=== PATIENT | male | born 1955 | race Caucasian/White ===

== ENCOUNTER 2017-02-14 08:48 | Day surgery (SDC) | payer OTHER ==
[~2017-02-14] VITALS: Ht 182.9 cm; Wt 78.0 kg
--- NOTE | 2017-02-15 10:34 | OR ---
ADMIT: 02/14/2017 RM/LOC: [facility] MR#: [id number] [address] [id number] DEBRA HOLGUIN [address] [place] [address] Operative/Delivery Room Report SEX: M AGE: 61 : 1955 SURGERY DATE: 02/14/2017 SURGEON: Manish Ho MD PROCEDURE: Total colonoscopy with hot biopsy polypectomies. PREOPERATIVE DIAGNOSIS: Colon polyps. POSTOPERATIVE DIAGNOSES: 1. Colon polyps. 2. Left-sided diverticulosis. DESCRIPTION OF PROCEDURE: The patient was brought to the procedure room, placed in left lateral decubitus position. Informed consent had been obtained preoperatively. The risks and benefits including, but not limited to, perforation, sedation, and bleeding were discussed with the patient and agreed upon. All questions were answered, alternatives discussed, the patient agreed. TIVA was provided by the GREEN INSPECTOR with propofol. Anal inspection, digital examination revealed no abnormalities or obstructing masses. Prostate was normal in size, texture, and contour without nodularity. Olympus videoendoscope, model CF-H180AL, was inserted into the rectum and advanced to cecum without difficulty. The appendiceal orifice and ileocecal valve were identified. The valve could not be cannulated due to position. Scope was retroflexed in the cecum, and the ascending colon appeared normal, retrograde. The scope was slowly withdrawn through a normal ascending and transverse colon. In the descending colon, polyps were removed using a hot biopsy forceps, these were cauterized and retrieved. In the sigmoid, there were scattered diverticula and occasional small polyp that appeared adenomatous and removed in a similar fashion. Rectum was normal. Scope was retroflexed. The anal verge appeared normal. The patient tolerated the procedure well. No complications were expected. Blood loss was less than 1 mL. He will call me in one week for his biopsy report, sooner if he should have any postoperative problems. Recommend he have repeat colonoscopy in 5 years unless signs or symptoms develop in the interval. Manish Ho MD/ jenny JOB #: [id number] CC: Manish Ho, Attending Physician Johan Avalos, Family Physician
== END 2017-02-14 12:25 | disposition home or self-care (01) ==
LOC: SSS 08:48
PROC: 0DBN8ZX Excision of Sigmoid Colon, Via Natural or Artificial Opening Endoscopic, Diagnostic (ICD-10-PCS; principal; 2017-02-14)
PROC: 0DBM8ZX Excision of Descending Colon, Via Natural or Artificial Opening Endoscopic, Diagnostic (ICD-10-PCS; principal; 2017-02-14)
DX: D12.4 Benign neoplasm of descending colon (principal); K63.5 Polyp of colon; K57.30 Diverticulosis of large intestine without perforation or abscess without bleeding; E78.5 Hyperlipidemia, unspecified; Z98.890 Other specified postprocedural states